=== PATIENT | male | born 1975 | race Caucasian/White ===

== ENCOUNTER 2023-06-11 04:42 | Day surgery (SDC) | payer BC ==
[2023-06-08 14:09] VITALS: BMI 48.8
[2023-06-11 08:34] VITALS: TEMP 98
[2023-06-11 09:34] VITALS: BP 96/62; PULSE 61; RESP 13
== END 2023-06-11 09:20 | disposition home or self-care (01) ==
LOC: JASU-ENDO 04:42
PROVIDERS: ATTEND Student in an Organized Health Care Education/Training Program
PROC: 0DBM8ZX Excision of Descending Colon, Via Natural or Artificial Opening Endoscopic, Diagnostic (ICD-10-PCS; principal; 2023-06-11 08:00)
DX: Z12.11 Encounter for screening for malignant neoplasm of colon (principal); K63.5 Polyp of colon
CPT/HCPCS: 88305-TC